=== PATIENT | male | born 1960 | race African-American/Black ===

== ENCOUNTER 2020-01-06 22:42 | Emergency (ER) | payer OTHER ==
[~2020-01-06] VITALS: Ht 177.8 cm; Wt 58.5 kg
[2020-01-06 22:52] VITALS: BP 128/90
[2020-01-06] MEDS ORDERED: NACL 0.9% 1,000 ML IV ONE (23:05)
[2020-01-06] MEDS ORDERED: ONDANSETRON 4 MG/2 ML VIAL IVP ONE (23:05)
--- NOTE | 2020-01-06 23:05 | NUR ---
PT AMBULATED TO ER BED 12
--- NOTE | 2020-01-06 23:12 | NUR ---
59M C/O BLOODY EMESIS/DIARRHEA THAT BEGAN LAST MONDAY + LOWER ABD PAIN + HEADACHE. PT STATES THAT HE USES MARIJUANA AND IS A MODERATE ALCOHOL DRINKER. PMH: KIDNEY STONES NKA
--- NOTE | 2020-01-06 23:18 | NUR ---
TO CT VIA [facility].
--- NOTE | 2020-01-06 23:30 | NUR ---
PT MEDICATED WITH ZOFRAN. NS BOLUS INITIATED.
[2020-01-06 23:32] LABS: BASOPHILS % (AUTO) 0.4 % (0.0-2.0); EOSINOPHILS # (AUTO) 0.1 K/uL (0-0.4); HEMATOCRIT 45.9 % (36-52); HEMOGLOBIN 15.1 g/dL (12.0-18.0); LYMPHOCYTES # (AUTO) 1.7 K/uL (2.0-11.5); MEAN CORPUSCULAR HEMOGLOBIN 31 pg (27-31); MEAN CORPUSCULAR HGB CONC 33 g/dL (33-37); MEAN CORPUSCULAR VOLUME 93.9 fL (80-94); MONOCYTES # (AUTO) 0.4 K/uL (0.8-1.0); MONOCYTES % (AUTO) 6.6 % (1.7-9.3); NEUTROPHILS # (AUTO) 4.2 K/uL (1.8-7.7); PLATELET COUNT (AUTO) 264 K/uL (140-450); RED BLOOD CELL COUNT(AUTO) 4.89 MIL/uL (4.20-6.10); WHITE BLOOD COUNT (AUTO) 6.4 K/uL (4.8-10.8)
[2020-01-06 23:35] VITALS: BP 128/90
[2020-01-06 23:46] LABS: ALBUMIN 4.4 g/dL (3.4-5.0); ANION GAP 16.2 (8-16); CARBON DIOXIDE 25.3 mmol/L (21-32); CREATININE 1.1 mg/dL (0.6-1.3); POTASSIUM 3.5 mmol/L (3.5-5.1); TOTAL BILIRUBIN 0.6 mg/dL (0.0-1.0)
[2020-01-06 23:48] LABS: APPEARANCE,URINE CLEAR (CLEAR); BILIRUBIN,URINE NEGATIVE (NEGATIVE); BLOOD, URINE NEGATIVE (NEGATIVE); COLOR,URINE YELLOW (YELLOW); LEUKOCYTE ESTERASE ,URINE NEGATIVE (NEGATIVE); NITRITE, URINE NEGATIVE (NEGATIVE); PH,URINE 5.5 (5.0-9.0); UGLUCOSE NEGATIVE (NEGATIVE)
[2020-01-07 01:10] LABS: BARBITURATE, URINE NEGATIVE ng/ml (NEG <=200); BENZODIAZEPINE, URINE NEGATIVE ng/mL (NEG <=200); CANNABINOID, URINE POSITIVE ng/mL (NEG <=50); COCAINE, URINE POSITIVE ng/mL (NEG <=300); OPIATE, URINE NEGATIVE ng/mL (NEG <=2000); PHENCYCLIDINE SCREEN,URINE NEGATIVE ng/mL (NEG <=25)
--- NOTE | 2020-01-07 01:24 | NUR ---
PT DISCHARGED BY DR. BUCKLEY
== END 2020-01-07 01:24 | disposition home or self-care (01) ==
LOC: MED 22:42
DX: R11.2 Nausea with vomiting, unspecified (principal); F12.929 Cannabis use, unspecified with intoxication, unspecified; F14.129 Cocaine abuse with intoxication, unspecified
CPT/HCPCS: 36415; 74176; 80053; 80305; 81003; 82150; 83690; 85025; 96361; 96374; 99284; J2405; J7030